=== PATIENT | male | born 1945 | race Caucasian/White ===

== ENCOUNTER 2016-07-31 09:42 | Day surgery (SDC) | payer MEDICARE, OTHER ==
[~2016-07-31] VITALS: Ht 193 cm; Wt 113.4 kg
[~2016-07-31 09:42] MED LIST: 0.9% Sodium Chloride 1,000 ML IV PRN; ADA30 PO; ALLO300T29 PO; ASCO100089 PO; ASP81TEC PO; BUPR75TA10 PO; COU25 PO; FINA1TAB17 PO; GUAI600T28 PO; LIP40 PO; LOP100 PO; MAGN250T29 PO; MULT-1018 PO; NICO4GUM BC; OMPR20CCR PO; ProAirHFA INH; QVAR80 INH; SELE200T11 PO; Sodium Chloride LOK Flush 10 mL Syringe IV PRN; TAMS0.4C29 PO; THIO300C PO; TIOT18CA INH; VIT1TABL83 PO; ZES20T PO; fentaNYL-PF 50 mCg/mL 2 mL Inj IVPUSH PRN
[2016-07-31 10:11] VITALS: BP 116/70; PULSE 69; RESP 14; O2SAT 97
[2016-07-31 11:21] VITALS: BP 113/76; PULSE 65; RESP 16; O2SAT 92
[2016-07-31 11:31] VITALS: BP 121/75; PULSE 64; RESP 16; O2SAT 93
[2016-07-31 11:40] VITALS: BP 117/74; PULSE 63; RESP 16; O2SAT 94
--- NOTE | 2016-07-31 23:18 | ENDO ---
[address] [address] ENDOSCOPY PROCEDURE PATIENT: SIMONE NUGENT : 1945 MR#: [id number] ADMIT: 07/31/2016 JOB ID: [id number] DATE OF PROCEDURE: 07/31/2016 PRIMARY PROVIDER: Ricky Brizuela MD. PROCEDURE: Colonoscopy with cold forceps polypectomy. INDICATIONS: A 71-year-old male with a history of multiple colon polyps, returning for surveillance. EQUIPMENT: [employer]pee[employer]80AL. SEDATION: 1. Versed 3 mg. 2. Fentanyl 75 mcg. COMPLICATIONS: None identified. BOWEL PREPARATION: Fair, adequate exam. PROCEDURE INFORMATION: After the risks and benefits were explained, written and verbal informed consent was obtained. The patient was brought into the endoscopy suite and placed into the left lateral decubitus position. Sedation was achieved as above. A digital rectal examination accomplished. No significant pathology apart from some mild internal hemorrhoids noted. The scope was introduced into the rectum and advanced under direct visualization to the cecum as identified by the appendiceal orifice and ileocecal valve. The scope was slowly withdrawn to carefully examine the mucosa for any defects or lesions. Retroflexed views were accomplished in the rectum. The colon was decompressed. The scope was removed from the patient who tolerated the procedure well. FINDINGS: Some mild diverticulosis was seen. The patient had a redundant lengthy colon. All of the endoscope was required for advancement of the scope into cecum. There was a very diminutive polyp removed with cold forceps from the left colon. Retroflexed views were otherwise unremarkable. No other significant pathology was appreciated throughout. ENDOSCOPIC DIAGNOSES: 1. Colon polyp. 2. Diverticulosis. 3. Mild hemorrhoids. RECOMMENDATIONS: 1. Await histopathology. 2. Repeat colonoscopy in five years.
--- NOTE | 2016-08-02 10:50 | PATH ---
SURGICAL PATHOLOGY Attending Physician:Monique Estrella CASE STATUS: Signed Out PATIENT NAME: SIMONE NUGENT PID: [id number] : 1945 DATE COLLECTED:07/31/2016 20:13 SPECIMEN: Colon, Biopsy CLINICAL HISTORY: POLYP 1). LEFT COLON POLYP FINAL DIAGNOSIS: Left Colon Polyp: Polypoid-shaped fragment of colon mucosa consistent with mucosal polypoid redundancy. Negative for dysplasia and malignancy. ICD10 K63.5 GROSS DESCRIPTION: The specimen is received in one formalin filled container labeled with the patient's name, sublabeled "left colon polyp" and consists of a 0.2 x 0.2 x 0.2 CM portion of tissue which is entirely submitted in one cassette. 07/31/2016 [facility] ICD-9 CODES: CPT CODES: 1: 23864 Electronically Signed Out King Gabriel MD [facility] Pathology [facility] [address], [place] [address] Technical component performed at [facility], [facility] [address], [place], [address]
== END 2016-07-31 23:59 | disposition home or self-care (01) ==
LOC: END 09:42
PROVIDERS: ATTEND Internal Medicine Gastroenterology
DX: Z12.11 Encounter for screening for malignant neoplasm of colon (principal); Z86.010 Personal history of colon polyps; K63.5 Polyp of colon; K57.30 Diverticulosis of large intestine without perforation or abscess without bleeding; I48.2 Chronic atrial fibrillation; Z79.01 Long term (current) use of anticoagulants; I10 Essential (primary) hypertension; E11.9 Type 2 diabetes mellitus without complications; J44.9 Chronic obstructive pulmonary disease, unspecified
CPT/HCPCS: 45380; 88305; 99153; G0500; J2250; J3010; J7030